=== PATIENT | male | born 1955 | race Caucasian/White ===

== ENCOUNTER 2018-02-08 08:18 | Outpatient (REF) | payer OTHER, SELFPAY ==
[2018-02-08 13:30] LABS: HCT 42.7 % (40.0-50.0); HGB 14.1 g/dL (13.5-17.5); Mean Corpuscular Hemoglobin 30.7 pg (27.0-33.0); Mean Platelet Volume 10.6 fL (8.0-11.0); Platelet Count 219 x1000/uL (130-400); RBC 4.59 m/cumm (4.50-6.00); RBC Distribution Width 14.6 % (11.8-14.1)
[2018-02-08 14:08] LABS: BUN 12 mg/dL (7-18); CREATININE 1.02 mg/dL (0.70-1.30); Calcium 9.4 mg/dL (8.5-10.1); Chloride 98 mmol/L (98-107); Ferritin 107 ng/mL (8-388); Glucose 118 mg/dL (70-100); Potassium 3.8 mmol/L (3.5-5.1); Sodium 138 mmol/L (136-145)
[2018-02-08 14:28] LABS: Hemoglobin A1C 6.1 % (4.5-6.2)
== END 2018-02-08 08:38 ==
LOC: NCHCN 08:18
PROVIDERS: PCP Family Medicine; Visit Provider Family Medicine
DX: E11.9 Type 2 diabetes mellitus without complications (principal); D50.9 Iron deficiency anemia, unspecified
CPT/HCPCS: 80048; 85027; 82728; 83036

== ENCOUNTER 2018-08-08 08:03 | Outpatient (REF) | payer OTHER, SELFPAY ==
[2018-08-08 13:06] LABS: HCT 42.7 % (40.0-50.0); Mean Corp. HGB Concentration 32.8 g/dL (32.0-36.0); Mean Corpuscular Hemoglobin 30.7 pg (27.0-33.0); Mean Corpuscular Volume 93.6 fL (80-95); Mean Platelet Volume 10.9 fL (8.0-11.0); Platelet Count 221 x1000/uL (130-400); RBC 4.56 m/cumm (4.50-6.00); RBC Distribution Width 14.2 % (11.8-14.1); White Blood Cell Count 5.84 k/cumm (4.4-10.8)
[2018-08-08 13:49] LABS: ALT 100 U/L (12-78); AST 71 U/L (15-37); Alkaline Phosphatase 95 U/L (46-116); Anion Gap 9.8 mmol/L (3-11); BUN 12 mg/dL (7-18); Bilirubin, Total 0.5 mg/dL (0.2-1.0); CO2 31.2 mmol/L (21.0-32.0); CREATININE 1.02 mg/dL (0.70-1.30); Calcium 9.6 mg/dL (8.5-10.1); Calculated LDL 59; Chloride 97 mmol/L (98-107); Cholesterol 145 mg/dL (50-200); Ferritin 79 ng/mL (8-388); Glucose 108 mg/dL (70-100); HDL Cholesterol 40 mg/dL (40-60); Potassium 3.9 mmol/L (3.5-5.1); Sodium 138 mmol/L (136-145); Total Protein 7.4 g/dL (6.4-8.2); Triglyceride 231 mg/dL (30-150)
[2018-08-08 13:54] LABS: Hemoglobin A1C 6.1 % (4.5-6.2)
== END 2018-08-08 08:23 ==
LOC: NCHCN 08:03
PROVIDERS: PCP Family Medicine; Visit Provider Family Medicine
DX: E11.9 Type 2 diabetes mellitus without complications (principal); D50.9 Iron deficiency anemia, unspecified; I10 Essential (primary) hypertension; E78.5 Hyperlipidemia, unspecified
CPT/HCPCS: 80053; 80061; 83721; 85027; 82728; 83036

== ENCOUNTER 2018-08-15 10:30 | Outpatient (CLI) | payer OTHER, SELFPAY ==
--- NOTE | 2018-08-15 12:31 | MERGE_ITS ---
*[facility]* *[facility]* [address] [place] [address] Date of study: 08/15/2018 Transthoracic Echocardiography M-mode, complete 2D, complete spectral Doppler, and color Doppler *STUDY CONCLUSIONS* Summary: 1. Left ventricle: The cavity size was normal. Wall thickness was normal. Systolic function was normal. The estimated ejection fraction was 55-60%. Wall motion was normal; there were no regional wall motion abnormalities. 2. Right ventricle: The cavity size was normal. Wall thickness was normal. Systolic function was normal. *PATIENT PRESENTATION* Height: 175.3cm ((69in) ) S/D Pressure: 133 / 94 Weight: 112.5kg ((247.5lb) ) BSA: 2.38m^2 Test start time: 12:30 PM. Test stop time: 01:10 PM. CONSULTING Yady Young PERFORMING Unknown PERFORMING [facility] ORDERING Joanie Manzo Aprn REFERRING Joanie Manzo Aprn STORM CHASER Rosalina Vaca *PROCEDURE DATA* Procedure information: This study was interpreted by [facility]. Pertinent images and digital data are archived for permanent storage and are available for subsequent review. Comparison was made to the study of 01/13/2016. Study status: Routine. Transthoracic echocardiography. M-mode, complete 2D, complete spectral Doppler, and color Doppler. A Transthoracic Echocardiogram was performed. Scanning was performed from the parasternal, apical, subcostal, and suprasternal notch acoustic windows. Images were obtained using an [employer] SC 2000 cardiac ultrasound machine. Image quality was adequate. Study completion: The patient tolerated the procedure well. There were no complications. History: PMH: Activity intolerance, ? A fib. *CARDIAC ANATOMY* Left ventricle: The cavity size was normal. Wall thickness was normal. Systolic function was normal. The estimated ejection fraction was 55-60%. Wall motion was normal; there were no regional wall motion abnormalities. Diastolic parameters were normal. Aortic valve: Trileaflet; normal thickness leaflets. Mobility was not restricted. Doppler: Transvalvular velocity was within the normal range. There was no stenosis. There was no significant regurgitation. VTI ratio of LVOT to aortic valve: 0.98. Valve area (VTI): 3.2cm^2. Indexed valve area (VTI): 1.3cm^2/m^2. Peak velocity ratio of LVOT to aortic valve: 0.87. Valve area (Vmax): 2.8cm^2. Indexed valve area (Vmax): 1.2cm^2/m^2. Mean velocity ratio of LVOT to aortic valve: 0.87. Valve area (Vmean): 2.8cm^2. Indexed valve area (Vmean): 1.2cm^2/m^2. Mean gradient (S): 3.8mm Hg. Peak gradient (S): 9.1mm Hg. Aorta: Aortic root: The aortic root was normal in size. Ascending aorta: The ascending aorta was normal in size. Mitral valve: Structurally normal valve. Mobility was not restricted. Doppler: Transvalvular velocity was within the normal range. There was no evidence for stenosis. There was no significant regurgitation. Valve area by pressure half-time: 3.7cm^2. Indexed valve area by pressure half-time: 1.6cm^2/m^2. Left atrium: The atrium was normal in size. Right ventricle: The cavity size was normal. Wall thickness was normal. Systolic function was normal. Pulmonic valve: Structurally normal valve. Doppler: Transvalvular velocity was within the normal range. There was no evidence for stenosis. There was no significant regurgitation. Peak gradient (S): 4.3mm Hg. Tricuspid valve: Structurally normal valve. Doppler: Transvalvular velocity was within the normal range. There was no evidence for stenosis. There was mild regurgitation. Pulmonary artery: Pulmonary systolic pressure was within the normal range, in the range of 30mm Hg to 35mm Hg. Right atrium: The atrium was normal in size. Pericardium: There was no pericardial effusion. Systemic veins: Inferior vena cava: The vessel was normal in size. Measurements Left ventricle Value Reference LV ID, ED, PLAX 4.8 cm 3.5 - 6.0 LV ID, ES, PLAX 3.0 cm 2.1 - 4.0 LV PW thickness, ED, PLAX 1.1 cm LV end-diastolic volume, 1-p A2C 111 ml LV ejection fraction, 1-p A2C 48 % LV end-diastolic volume, 1-p A4C 72 ml LV ejection fraction, 1-p A4C 45 % LV e', lateral 0.088 m/sec LV E/e', lateral 7 LV e', medial 0.093 m/sec LV E/e', medial 7 LV e', average 0.09 m/sec LV E/e', average 7 Ventricular septum Value Reference IVS thickness, ED, PLAX 1.1 cm LVOT Value Reference LVOT ID, A-P 2.0 cm LVOT area 3.2 cm^2 LVOT peak velocity, S 1.31 m/sec LVOT mean velocity, S 0.75 m/sec LVOT VTI, S 22.5 cm LVOT peak gradient, S 6.9 mm Hg LVOT mean gradient, S 2.8 mm Hg Stroke volume (SV), LVOT DP 73 ml Stroke index (SV/bsa), LVOT DP 30 ml/m^2 Aortic valve Value Reference Aortic valve peak velocity, S 1.5 m/sec Aortic valve mean velocity, S 0.87 m/sec Aortic valve VTI, S 23.0 cm Aortic mean gradient, S 3.8 mm Hg Aortic peak gradient, S 9.1 mm Hg VTI ratio, LVOT/AV 0.98 Aortic valve area, VTI 3.2 cm^2 Velocity ratio, peak, LVOT/AV 0.87 Aortic valve area, peak velocity 2.8 cm^2 Velocity ratio, mean, LVOT/AV 0.87 Aortic valve area, mean velocity 2.8 cm^2 Aortic valve area/bsa, mean velocity 1.2 cm^2/m^2 Aorta Value Reference Aortic root ID, ED 3.8 cm Ascending aorta ID, A-P, S 3.3 cm Left atrium Value Reference LA ID, A-P, ES 2.9 cm LA ID/bsa, A-P 1.2 cm/m^2 <=2.2 LA area, ES, A4C 22.5 cm^2 8.8 - 23.4 LA area, ES, A2C 24 cm^2 LA volume/bsa, S 33 ml/m^2 LA volume, ES, 2-p 72 ml LA volume/bsa, ES, 2-p 30 ml/m^2 LA/aortic root ratio 0.76 Mitral valve Value Reference Mitral E-wave peak velocity 0.64 m/sec Mitral A-wave peak velocity 0.75 m/sec Mitral deceleration time 203 ms 150 - 230 Mitral pressure half-time 59 ms Mitral E/A ratio, peak 0.85 Mitral valve area, PHT, DP 3.7 cm^2 Tricuspid valve Value Reference Tricuspid regurg peak velocity 2.5 m/sec Tricuspid peak RV-RA gradient 24.9 mm Hg Pulmonic valve Value Reference Pulmonic peak gradient, S 4.3 mm Hg Legend: (L) and (H) azeem values outside specified reference range. I have personally reviewed the images and have reviewed and edited the reported findings. Electronically signed by Latrell Womack 08/15/2018 13:53
== END 2018-08-15 10:50 ==
PROVIDERS: PCP Family Medicine; Visit Provider Nurse Practitioner Primary Care
DX: I48.91 Unspecified atrial fibrillation (principal); R68.89 Other general symptoms and signs
CPT/HCPCS: 93306

== ENCOUNTER 2018-08-15 15:50 | Outpatient (REF) | payer OTHER, SELFPAY ==
[2018-08-15 19:38] LABS: COMMENT (LAB VIEW ONLY) 205.57 mg/dL; Microalb ug/mg Crea 5.5 ug/mg Cr
== END 2018-08-15 16:10 ==
LOC: NCHCN 15:50
PROVIDERS: PCP Family Medicine; Visit Provider Family Medicine
DX: E11.9 Type 2 diabetes mellitus without complications (principal)
CPT/HCPCS: 82043; 82570

== ENCOUNTER 2018-11-13 07:35 | Outpatient (REF) | payer OTHER, SELFPAY ==
[2018-11-13 12:26] LABS: ALT 71 U/L (16-63); AST 47 U/L (15-37); Albumin 3.8 g/dL (3.4-5.0); Alkaline Phosphatase 96 U/L (46-116); Bilirubin, Direct 0.18 mg/dL (0.00-0.20); Bilirubin, Total 0.7 mg/dL (0.2-1.0)
[2018-11-13 12:53] LABS: HCT 34.7 % (40.0-50.0); HGB 11.2 g/dL (13.5-17.5); Mean Corp. HGB Concentration 32.3 g/dL (32.0-36.0); Mean Corpuscular Volume 86.8 fL (80-95); Mean Platelet Volume 10.6 fL (8.0-11.0); Platelet Count 292 x1000/uL (130-400); White Blood Cell Count 6.89 k/cumm (4.4-10.8)
== END 2018-11-13 07:55 ==
LOC: NCHCN 07:35
PROVIDERS: PCP Family Medicine; Visit Provider Family Medicine
DX: F10.99 Alcohol use, unspecified with unspecified alcohol-induced disorder (principal); K76.0 Fatty (change of) liver, not elsewhere classified
CPT/HCPCS: 80076; 85027

== ENCOUNTER 2019-03-04 01:22 | Outpatient (CLI) | payer OTHER, MEDICARE, SELFPAY ==
--- NOTE | 2019-03-04 07:01 | DI.US_ITS ---
EXAM: US SCROTUM CLINICAL HISTORY: LT TESTIS VARICOCELE, I86.1 TECHNIQUE: Ultrasound performed using standard protocol. COMPARISON: SCROTAL ULTRASOUND from 10/06/2011 FINDINGS: The testicles are normal in size and echogenicity. There is no evidence of mass or torsion. There is a question of a 3 millimeter spermatocele in the head of the right epididymis. There are mildly dil ated veins up to 3 millimeters in diameter consistent with a mild left varicocele. There is no signi ficant hydrocele. IMPRESSION: Mild left varicocele, not grossly changed from 2012.
== END 2019-03-04 01:42 ==
PROVIDERS: PCP Family Medicine; Visit Provider Family Medicine
DX: I86.1 Scrotal varices (principal); N43.41 Spermatocele of epididymis, single
CPT/HCPCS: 76870

== ENCOUNTER 2019-04-15 08:59 | Outpatient (CLI) | payer OTHER, MEDICARE, SELFPAY | END 2019-04-15 09:19 | PROVIDERS: PCP Family Medicine; Visit Provider Internal Medicine Cardiovascular Disease | DX: I48.91 Unspecified atrial fibrillation (principal); I10 Essential (primary) hypertension; Z95.0 Presence of cardiac pacemaker | CPT/HCPCS: 93005; 93010 ==

== ENCOUNTER 2019-09-10 01:13 | Outpatient (CLI) | payer OTHER, MEDICARE, SELFPAY ==
[2019-09-10 10:38] LABS: COMMENT (LAB VIEW ONLY) 240.65 mg/dL; Microalb ug/mg Crea 5.4 ug/mg Cr
== END 2019-09-10 01:33 ==
PROVIDERS: PCP Family Medicine; Visit Provider Family Medicine
DX: R73.03 Prediabetes (principal)
CPT/HCPCS: 82043; 82570

== ENCOUNTER 2020-02-11 16:29 | Outpatient (REF) | payer OTHER, MEDICARE, SELFPAY ==
[2020-02-11 13:50] LABS: HCT 42.9 % (40.0-50.0); HGB 14.1 g/dL (13.5-17.5); MCHC 32.9 % (32.0-36.0); MCV 91.3 fL (80-95); MPV 10.9 fL (8.0-11.0); Platelet Count 234 10^3/uL (130-400); RDW 13.3 % (11.8-14.1); RDW-SD 44.5 fL; WBC 8.31 10^3/uL (4.4-10.8)
[2020-02-11 14:02] LABS: ALT 98 U/L (16-63); AST 68 U/L (15-37); Alkaline Phosphatase 107 U/L (46-116); Anion Gap 10.6 mmol/L (3-11); BUN 17 mg/dL (7-18); Bilirubin, Total 0.4 mg/dL (0.2-1.0); CO2 30.4 mmol/L (21.0-32.0); CREATININE 1.13 mg/dL (0.70-1.30); Calcium 9.8 mg/dL (8.5-10.1); Chloride 100 mmol/L (98-107); Glucose 141 mg/dL (74-106); Potassium 3.9 mmol/L (3.5-5.1); Sodium 141 mmol/L (136-145); Total Protein 7.5 g/dL (6.4-8.2)
[2020-02-11 14:12] LABS: Hemoglobin A1C 6.4 % (<5.7)
== END 2020-02-11 16:49 ==
LOC: LBN 16:29
PROVIDERS: PCP Family Medicine; Visit Provider Family Medicine
DX: R73.03 Prediabetes (principal); E78.5 Hyperlipidemia, unspecified; I10 Essential (primary) hypertension; K76.0 Fatty (change of) liver, not elsewhere classified
CPT/HCPCS: 80053; 85027; 83036

== ENCOUNTER 2020-02-19 17:57 | Outpatient (REF) | payer OTHER, MEDICARE, SELFPAY ==
[2020-02-22 14:50] LABS: HSV 1 DNA Result Negative (Negative); HSV 2 DNA Result Positive (Negative); Varicella Zoster DNA Result Negative (Negative)
== END 2020-02-19 18:17 ==
LOC: LBN 17:57
PROVIDERS: PCP Family Medicine; Visit Provider Family Medicine
DX: R21 Rash and other nonspecific skin eruption (principal)
CPT/HCPCS: 87529; 87798

== ENCOUNTER 2020-02-23 01:48 | Outpatient (CLI) | payer OTHER, MEDICARE, SELFPAY ==
--- NOTE | 2020-02-23 08:21 | DI.RAD_ITS ---
EXAM: XR HIP RT COMPLETE AP PELVIS CLINICAL HISTORY: RT HIP PAIN, M25.551. TECHNIQUE: 2D digital imaging was performed. COMPARISON: No exams were available for comparison FINDINGS: There is no evidence of pelvic or hip fracture. There is a 5 x 1.5 millimeters sliver of calcificati on immediately adjacent to the greater trochanter consistent with calcific tendonitis/bursitis. Ther e are mild degenerative changes in the hip joint noted. No ominous osseous lesions. IMPRESSION: 5 x 1.5 millimeter calcification just lateral to the right hip greater trochanter. This is probably related to calcific tendinitis or bursitis at this level. DATA REPOSITORY: RADIATION DOSE DELIVERED:
== END 2020-02-23 02:08 ==
PROVIDERS: PCP Family Medicine; Visit Provider Family Medicine
DX: M25.551 Pain in right hip (principal); M16.11 Unilateral primary osteoarthritis, right hip; M25.851 Other specified joint disorders, right hip
CPT/HCPCS: 73502

== ENCOUNTER 2020-08-09 09:12 | Outpatient (REF) | payer OTHER, MEDICARE, SELFPAY ==
[2020-08-09 14:43] LABS: ALT 89 U/L (16-63); AST 54 U/L (15-37); Albumin 3.8 g/dL (3.4-5.0); Alkaline Phosphatase 93 U/L (46-116); Anion Gap 11.1 mmol/L (3-11); BUN 18 mg/dL (7-18); Bilirubin, Total 0.6 mg/dL (0.2-1.0); CO2 28.9 mmol/L (21.0-32.0); CREATININE 1.1 mg/dL (0.70-1.30); Calcium 9.5 mg/dL (8.5-10.1); Chloride 103 mmol/L (98-107); Glucose 141 mg/dL (74-106); Sodium 143 mmol/L (136-145); Total Protein 7.2 g/dL (6.4-8.2)
[2020-08-09 14:49] LABS: Hemoglobin A1C 6.5 % (<5.7)
== END 2020-08-09 09:13 | disposition home or self-care (01) ==
LOC: NCHCN 09:12
PROVIDERS: PCP Family Medicine; Visit Provider Family Medicine
DX: R73.03 Prediabetes (principal); I10 Essential (primary) hypertension; K76.0 Fatty (change of) liver, not elsewhere classified
CPT/HCPCS: 80053; 83036

== ENCOUNTER 2020-08-16 10:32 | Outpatient (REF) | payer OTHER, MEDICARE, SELFPAY ==
[2020-08-16 16:55] LABS: COMMENT (LAB VIEW ONLY) 291.75 mg/dL
[2020-08-16 16:59] LABS: Microalb ug/mg Crea 35.3 ug/mg Cr
== END 2020-08-16 10:33 | disposition home or self-care (01) ==
LOC: NCHCN 10:32
PROVIDERS: PCP Family Medicine; Visit Provider Family Medicine
DX: R73.03 Prediabetes (principal); I10 Essential (primary) hypertension
CPT/HCPCS: 82043; 82570

== ENCOUNTER → 2021-05-11 09:39 | Outpatient (BNVA) | payer MEDICARE, SELFPAY | PROVIDERS: PCP Family Medicine; Visit Provider Physician Assistant | DX: I44.30 Unspecified atrioventricular block (principal); Z95.0 Presence of cardiac pacemaker | CPT/HCPCS: 93280 ==

== ENCOUNTER 2021-06-14 16:05 | Outpatient (REF) | payer MEDICARE, BC, SELFPAY ==
[2021-06-14 21:57] LABS: HCT 41.8 % (40.0-50.0); HGB 13.2 g/dL (13.5-17.5); MCH 29.9 pg (27.0-33.0); MCHC 31.6 % (32.0-36.0); MCV 94.8 fL (80-95); MPV 10.7 fL (8.0-11.0); Platelet Count 214 10^3/uL (130-400); RBC 4.41 10^6/uL (4.36-5.78); RDW 13.8 % (11.8-14.1); RDW-SD 47.8 fL; WBC 6.82 10^3/uL (4.4-10.8)
[2021-06-14 22:46] LABS: Hemoglobin A1C 6.5 % (<5.7)
[2021-06-14 22:59] LABS: ALT 64 U/L (16-63); AST 47 U/L (15-37); Alkaline Phosphatase 88 U/L (46-116); BUN 17 mg/dL (7-18); Bilirubin, Total 0.7 mg/dL (0.2-1.0); CREATININE 1.2 mg/dL (0.70-1.30); Calcium 9.5 mg/dL (8.5-10.1); Chloride 101 mmol/L (98-107); Ferritin 74 ng/mL (26-388); Glucose 139 mg/dL (74-106); Potassium 3.8 mmol/L (3.5-5.1); Sodium 142 mmol/L (136-145); Total Protein 7.3 g/dL (6.4-8.2)
== END 2021-06-14 16:06 | disposition home or self-care (01) ==
LOC: NCHCN 16:05
PROVIDERS: PCP Family Medicine; Visit Provider Family Medicine
DX: R73.03 Prediabetes (principal); I10 Essential (primary) hypertension; Z86.2 Personal history of diseases of the blood and blood-forming organs and certain disorders involving the immune mechanism
CPT/HCPCS: 80053; 85027; 82728; 83036

== ENCOUNTER → 2021-08-30 01:29 | Outpatient (CLI) | payer BC, MEDICARE, SELFPAY ==
--- NOTE | 2021-08-30 | DI.US_ITS ---
Exam(s) US ABDOMEN EXAM: US ABDOMEN CLINICAL HISTORY: SCREENING FOR HCC, CIRRHOSIS,K74.60,FATTY INFILTRATION LIVER,K76.0 TECHNIQUE: Ultrasound of complete upper abdomen performed using standard protocol. COMPARISON: US ABDOMEN LIMITED/FOLLOW UP US from 09/14/2016 US US SCROTUM from 03/04/2019 FINDINGS: There is no ascites evident. LIVER: Somewhat echogenic implying an element of steatosis. No obvious discrete focal hepatic lesion s identified. GALLBLADDER/BILIARY: Gallbladder surgically absent. The common hepatic duct isupper normal, measuring 6-7mm at the level of mariana hepatis. PANCREAS: Not well seen due to overlying bowel gas. SPLEEN: The spleen is not enlarged and there are no intrasplenic lesions evident. KIDNEYS:Kidneys exhibit normal size with no evidence of solid mass, calculus, nor hydronephrosis. No cortical cysts evident. ABDOMINAL AORTA: Not seen due to bowel gas IVC: Not well seen due to bowel gas IMPRESSION: 1. Gallbladder is now surgically absent. Common hepatic duct diameter is commensurate with post cho lecystectomy status. 2. Echogenic liver implying an element of steatosis. No obvious discrete focal hepatic lesions iden tified. 3. There is no ascites. DATA REPOSITORY:
== END ==
PROVIDERS: PCP Family Medicine; Visit Provider Family Medicine
DX: K74.60 Unspecified cirrhosis of liver (principal); K76.0 Fatty (change of) liver, not elsewhere classified; Z90.49 Acquired absence of other specified parts of digestive tract
CPT/HCPCS: 76700

== ENCOUNTER 2021-09-15 10:47 | Outpatient (REF) | payer BC, MEDICARE, SELFPAY ==
[2021-09-15 15:51] LABS: COMMENT (LAB VIEW ONLY) 175.87 mg/dL
[2021-09-15 16:17] LABS: Microalb ug/mg Crea 3.2 ug/mg Cr
== END 2021-09-15 10:48 | disposition home or self-care (01) ==
LOC: NCHCN 10:47
PROVIDERS: PCP Family Medicine; Visit Provider Family Medicine
DX: E11.9 Type 2 diabetes mellitus without complications (principal)
CPT/HCPCS: 82043; 82570

== ENCOUNTER 2022-06-14 10:33 | Outpatient (REF) | payer BC, MEDICARE, SELFPAY ==
[2022-06-14 16:00] LABS: HCT 44.4 % (40.0-50.0); HGB 14.3 g/dL (13.5-17.5); MCH 27.8 pg (27.0-33.0); MCHC 32.2 % (32.0-36.0); MCV 86 fL (80-95); MPV 10.4 fL (8.0-11.0); Platelet Count 252 10^3/uL (130-400); RBC 5.15 10^6/uL (4.36-5.78); RDW 13.6 % (11.8-14.1); RDW-SD 42.4 fL; WBC 11.37 10^3/uL (4.4-10.8)
[2022-06-14 16:15] LABS: Hemoglobin A1C 6.7 % (<5.7)
[2022-06-14 16:26] LABS: ALT 42 U/L (16-63); AST 20 U/L (15-37); Albumin 3.8 g/dL (3.4-5.0); Alkaline Phosphatase 88 U/L (46-116); Anion Gap 9.3 mmol/L (3-11); BUN 16 mg/dL (7-18); Bilirubin, Total 0.4 mg/dL (0.2-1.0); CO2 27.7 mmol/L (21.0-32.0); CREATININE 1.3 mg/dL (0.70-1.30); Calcium 9.7 mg/dL (8.5-10.1); Chloride 105 mmol/L (98-107); Estimated GFR 59.84 (mL/min/1.73m2); Glucose 151 mg/dL (74-106); Potassium 3.8 mmol/L (3.5-5.1); Sodium 142 mmol/L (136-145); Total Protein 7.9 g/dL (6.4-8.2)
== END 2022-06-14 10:34 | disposition home or self-care (01) ==
LOC: NCHCN 10:33
PROVIDERS: PCP Family Medicine; Visit Provider Family Medicine
DX: E11.9 Type 2 diabetes mellitus without complications (principal); I10 Essential (primary) hypertension
CPT/HCPCS: 80053; 85027; 83036

== ENCOUNTER 2022-06-16 07:04 | Day surgery (SDC) | payer BC, MEDICARE, SELFPAY ==
--- NOTE | 2022-06-15 12:05 | PDOC.DSDIS_ITS ---
Date of service: 06/16/22 Time of Service: 09:17 Discharge Plan Disposition Patient Disposition: Home Discharge Details Reason For Visit: Colonoscopy/colon scope Attending Provider: Roxanne Harvey Primary Care Provider: Yady oYung Home Meds and New Rx's Prescriptions: Discontinued bisacodyl [Dulcolax (bisacodyl)] 5 mg tablet,delayed release (DR/EC) 5 mg PO ONCE Qty: 4 0RF Rx Instructions: Colonoscopy Bowel Prep- Per Instructions polyethylene glycol 3350 17 gram/dose powder 238 g PO ONCE Qty: 238 0RF Rx Instructions: Colonoscopy Bowel Prep- Per Instructions No Action multivitamin Tablet 1 tab PO DAILY ferrous sulfate 325 mg (65 mg iron) tablet 325 mg PO BID ascorbate calcium (vitamin C) 500 mg tablet 500 mg PO BID omega-3 fatty acids 1,250 mg capsule 1,250 mg PO DAILY calcipotriene [Dovonex] 0.005 % cream 1 applic TP DAILY betamethasone dipropionate 0.05 % ointment 1 applic TP DAILY selenium sulfide [SelRx] 2.3 % shampoo 1 applic TP DAILY Trulicity 0.75 mg/0.5 mL pen injector 0.5 mg subcut QWEEK atorvastatin 40 MG tablet 40 mg PO DAILY Eliquis 5 MG tablet 5 mg PO BID Qty: 60 11RF bisoprolol fumarate 10 mg tablet 10 mg PO DAILY Qty: 90 3RF losartan 25 mg tablet 50 mg PO DAILY omeprazole magnesium [Prilosec OTC] 20 MG tablet,delayed release (DR/EC) 40 mg PO DAILY Qty: 120 0RF Rx Instructions: double your dose for now acetaminophen [Tylenol] 325 MG tablet 650 mg PO Q4H PRN PRN0RF metformin 500 mg tablet extended release 24 hr 500 mg PO QPM hydrochlorothiazide 25 MG tablet 25 mg PO DAILY Discharge Instructions Additional Instructions: DSU Colonoscopy Post- Op Instructions Instructions for Everyone who is given Anesthesia: For your safety, please do the following for the next twenty-four (24) hours: *Do Not operate a motor vehicle (car, truck, motorcycle, etc.) *Do Not drink alcoholic beverages or use any recreational drugs for the first 24 hours or while taking pain medications. The medications in your body may have a reaction that can be dangerous. *Do Not make any important decisions or sign any important papers. Findings: Diverticula of the sigmoid colon. Follow up: repeat in 10 yrs time -Recommend F/u urology for nocturia 1. No lifting over 20 pounds or strenuous activity for the first 24 hours after your procedure. After 24 hours there are no restrictions on your activity but you may feel fatigued for a few days. 2. After you arrive home you may have a light meal and return to your normal diet as you can tolerate it without feeling sick to your stomach. 3. You may have a bloated, gaseous feeling in your belly (abdomen) after a colonoscopy. Passing gas and belching will help. Walking or lying down on your left side with your knees flexed may relieve the discomfort. Call the office at [phone] (Office) or [phone] (Hospital) right away if you notice any of the following: a.Vomiting of blood or ?coffee ground stools?. b.Rectal bleeding 1Tbsp, blood clots or continuous bleeding. c.Severe belly (abdominal) pain. d.A hard distended belly (abdomen) and an inability to pass gas. 4. Please don?t expect to have a normal BM (bowel movement) for 2-3 days after your procedure. 5. If there are questions regarding the findings of your procedure, please contact your doctor 6. If you are unable to contact your doctor with a problem, contact the hospital at [phone]. 7. Continue all your regular medications unless directed otherwise. I understand the above instructions and have no questions. Signature of Patient or Adult Escort Name of Responsible Adult Escort Signature of Nurse Date/Time Activity:: See above Diet:: See above Discharge Orders Discharge Orders: Discharge Order (Routine); Ordered 06/16/22 Ordered By: Roxanne Harvey
--- NOTE | 2022-06-15 16:41 | W.ANESPRE ---
General Info Date of Service Date Performed: 06/16/22 Height: 5 ft 9 in Weight: 120.202 kg Body Mass Index (BMI): 39.1 Surgical Procedure: Operation Date: 06/16/22 08:20 Proposed Procedure Side Surgeon mitchell Harvey, Meds Allergies and Home Medications Allergies Allergy/AdvReac Type Severity Reaction Status Date / Time No Known Allergies Allergy Verified 06/16/22 07:27 Home Medication Medication Instructions Recorded omeprazole magnesium 20 mg 40 mg PO DAILY ##120 12/31/15 tablet,delayed release (Prilosec OTC) atorvastatin 40 mg tablet 40 mg PO DAILY 05/11/16 acetaminophen 325 mg tablet 650 mg PO Q4H PRN PRN 09/16/16 (Tylenol) hydrochlorothiazide 25 mg tablet 25 mg PO DAILY 12/20/16 apixaban 5 mg tablet (Eliquis) 5 mg PO BID #60 tab-caps 05/29/17 ascorbate calcium (vitamin C) 500 500 mg PO BID 04/08/19 mg tablet betamethasone dipropionate 0.05 % 1 applic topical DAILY 04/08/19 topical ointment calcipotriene 0.005 % topical 1 applic topical DAILY 04/08/19 cream (Dovonex) ferrous sulfate 325 mg (65 mg 325 mg PO BID 04/08/19 iron) tablet metformin 500 mg tablet,extended 500 mg PO QPM 04/08/19 release 24 hr multivitamin 1 tab PO DAILY 04/08/19 omega-3 fatty acids 1,250 mg 1,250 mg PO DAILY 04/08/19 capsule selenium sulfide 2.3 % shampoo 1 applic topical DAILY 04/08/19 (SelRx) bisoprolol fumarate 10 mg tablet 10 mg PO DAILY #90 tabs 08/04/21 dulaglutide 0.75 mg/0.5 mL 0.5 mg subcut QWEEK 11/16/21 subcutaneous pen injector (Trulicity) losartan 25 mg tablet 50 mg PO DAILY 06/01/22 Current Visit Medications: Current Medications Generic Name Dose Route Start Last Admin Trade Name Freq PRN Reason Stop Dose Admin Hyoscyamine Sulfate 0.125 mg 06/16/22 12:04 Hyoscyamine 0.125 Mg Sl/Oral/Chew SL DIRECTED PRN Ringer's Solution 1,000 mls @ 80 mls/hr 06/16/22 06:00 IV 06/25/22 23:59 INFUSION [facility] IV Miscellaneous Supplies 1 each 06/16/22 06:00 Iv Access IV 06/25/22 23:59 DIRECTED RAMANDEEP Ondansetron HCl 4 mg 06/16/22 00:04 Ondansetron 4 Mg/2 Ml Vial IVP Q4H PRN PRN Nausea / Vomiting Sodium Chloride 0 ml 06/16/22 06:00 Normal Saline Flush 10 Ml Syr IV 06/25/22 23:59 PRN PRN Sodium Chloride 0 ml 06/16/22 06:00 Normal Saline 10 Ml Vial IJ 06/25/22 23:59 DIRECTED PRN Sterile Water 0 ml 06/16/22 06:00 Water,Injection,Sterile 10 Ml Vial IJ 06/25/22 23:59 DIRECTED PRN PFSH Active Problems Active Problems: Problem Status Onset Code Acute calculous cholecystitis K80.00 Pacemaker 01/13/16 Tubular adenoma of colon 12/22/16 D12.6 Atrial fibrillation I48.91 HTN (hypertension) I10 Pacemaker Z95.0 Left varicocele I86.1 Erectile dysfunction N52.9 Heart block atrioventricular I44.30 Medical History Medical History Chronic anal fissure CKD (chronic kidney disease) Depression Diabetes mellitus DVT (deep venous thrombosis) Fatty infiltration of liver Gastritis HLD (hyperlipidemia) Psoriasis Surgical History Surgical History AAA Appendectomy Cholecystectomy (09/14/16) Colonoscopy - MAC (05/16/16) History of embolectomy History of fasciotomy 4 compartment Per [facility] [place]: 02/16/14 open repair of ruptured AAA with tube gradt, embolectomy frmo groid, embolectomy from below knee incusion, 4 compartment fasciotomy Repair of umbilical hernia S/P cholecystectomy Tobacco Smoking/Tobacco Use Status: Current every day Tobacco Type: cigarettes Smoking cigarettes per day: 10 Alcohol Alcohol Intake: former Substance Use Substance use: Never Substance use type: does not use Vital Signs and Lab Results Vital Signs Most Recent Vital Signs in EMR: Temp Pulse Resp BP Pulse Ox 36.4 C L 87 18 118/82 95 06/16/22 07:13 06/16/22 07:13 06/16/22 07:13 06/16/22 07:13 06/16/22 07:13 Lab Results Blood Type / Crossmatch: No Data to Display Complete Blood Count: White Blood Count 11.37 10^3/uL (4.4-10.8) H 06/14/22 07:50 Red Blood Count 5.15 10^6/uL (4.36-5.78) 06/14/22 07:50 Hemoglobin 14.3 g/dL (13.5-17.5) 06/14/22 07:50 Hematocrit 44.4 % (40.0-50.0) 06/14/22 07:50 Platelet Count 252 10^3/uL (130-400) 06/14/22 07:50 Complete Metabolic Panel: Sodium 142 mmol/L (136-145) 06/14/22 07:50 Potassium 3.8 mmol/L (3.5-5.1) 06/14/22 07:50 Chloride 105 mmol/L (98-107) 06/14/22 07:50 Carbon Dioxide 27.7 mmol/L (21.0-32.0) 06/14/22 07:50 BUN 16 mg/dL (7-18) 06/14/22 07:50 Creatinine 1.3 mg/dL (0.70-1.30) 06/14/22 07:50 Est GFR (CKD-EPI 2020) 59.84 (mL/min/1.73m2) 06/14/22 07:50 Calcium 9.7 mg/dL (8.5-10.1) 06/14/22 07:50 Albumin 3.8 g/dL (3.4-5.0) 06/14/22 07:50 Glucose 151 mg/dL (74-106) H 06/14/22 07:50 Hemoglobin A1c 6.7 % (<5.7) H 06/14/22 07:50 Liver Function Panel: Alanine Aminotransferase (ALT/SGPT) 42 U/L (16-63) 06/14/22 07:50 Aspartate Amino Transf (AST/SGOT) 20 U/L (15-37) 06/14/22 07:50 Coagulation Panel: No Data to Display Cardiac Panel: No Data to Display Arterial Blood Gas: No Data to Display Venous Blood Gas: No Data to Display Pancreas Panel: No Data to Display Thyroid Panel: No Data to Display Infectious Disease: No Data to Display Blood Cultures: No Data to Display Toxicology Panel: No Data to Display Imaging and Studies Imaging and Studies Study information below may be from another EMR and interpreted by another provider. Please see original notes in EMR for more complete details. Stress Test Summary: 02/10: no defects noted, LVEF 58%. Echocardiogram Summary: 2019: LVEF 55-60%, normal rvfxn. Anesthesia Assessment and Plan Anesthesia History Personal History: No History of Anesthesia Complications Family History: No Family History of Anesthesia Complications Exercise Tolerance Exercise Tolerance: Metabolic Equivalents>4 Cardiac & Pulmonary Exam Cardiac Exam: Normal S1/S2 Heart Sounds Pulmonary Exam: Clear Bilateral Breath Sounds Implantable Cardiac Device Does patient have a Pacemaker or an ICD?: Yes Device Marketing Effectiveness Manager:: Tarenaa Reason for Placement:: AV block, A-fib Date of Last Device Interrogation:: 11/17/21 Airway Exam Known Difficult Airway: No Mallampati Class: 3 Mouth Opening: Normal (> 3cm) Thyromental Distance: Greater than 3 cm Neck Range of Motion: Full ROM Neck Circumference: Thick Teeth Condition: Normal Dentition ASA Classification ASA Score: ASA 3 Emergency Case?: No NPO Status NPO Status: NPO Clears >2 hours, Solids >8 hours Anesthesia Plan Resuscitation Status: Full Code Anesthesia Technique: General Anesthesia Airway Planned: Natural Airway Monitors Used: Standard Monitors Preoperative Comments:: 67 yo male for colo. Sig PMHx: pacer (medtronic advisa, DDDR, for high grade AVB), Afib (apixaban), CKD (GFR 59), DVT, DM (dulaglutide, metformin), AAA repair, smoker, GERD (omeprazole) Previous Anes: - colo, fent/midaz/prop, natural airway, no issues. - lap raj, mac 4 grade 1. - colo, prop, natural airway, no issues. did get glyco at the beginning.
[2022-06-16 07:13] VITALS: BP 118/82; PULSE 87; RESP 18; TEMP 36.4; O2SAT 95
[2022-06-16] MEDS: Lactated Ringers 1,000 ML 80 ML IV (07:40)
[2022-06-16 07:44] VITALS: BMI 39.1
--- NOTE | 2022-06-16 08:22 | W.COLOREPORT ---
Date of service: 06/16/22 Time of Service: 08:22 Colonoscopy Report Date of procedure: 06/16/22 Pre-op diagnosis general: History of adenomatous polyps / last scope was negative for polyps/I. hem's Post-op diagnosis procedure note: other (diverticula) Surgeon: Roxanne Harvey Anesthesia Type: General:No Airway Estimated blood loss (mL): 0 Pathology: none sent Complications: None Disposition: same day Prep: Miralax/Dulcolax Retraction Time: 14 mins Procedure Description: After informed consent was obtained the patient was taken to the procedure room and placed in a left decubitous position. Monitors were applied and a time out was done. The patients name, date of , procedure, allergies to medications and metal in their body was reviewed. The patient was then sedated. Once sedated and comfortable a rectal exam was done. External exam was normal. Internal exam revealed a normal sphincter tone and no palpable masses. The scope was then introduced and retrofelexed. Grade II internal hemorrhoids were identified. The scope was then advanced to the cecum w/out difficulty. The TI and appendiceal orifice were identified. The prep was BBPS 2 in all segments for total of 6. The mucosa is pink and healthy.. The scope was then slowly retracted over 14 minutes back into the rectum. He has moderate diverticular disease confined to the sigmoid colon with no signs of active bleeding or infection. No polyps were visualized today the scope was removed and the patient was woken up and taken back to Same day surgery in stable condition. The patient tolerated the procedure well and there were no immediate complications. Follow up: The patient should follow up in 10 years unless they develop changes in bowel habits or other new gastrointestinal complaints.
[2022-06-16 09:00] VITALS: PULSE 86; RESP 16; TEMP 36.4; O2SAT 95
--- NOTE | 2022-06-16 09:12 | W.ANESPOSTOP ---
Postoperative Evaluation Date, Time and Location Date Performed: 06/16/22 Time Performed: 09:13 Patient Location: Day Surgery Unit Vital Signs Most Recent Imported Vital Signs: Most Recent Vital Signs Temp Pulse Resp BP Pulse Ox 36.4 C L 86 16 118/82 95 06/16/22 09:00 06/16/22 09:00 06/16/22 09:00 06/16/22 07:13 06/16/22 09:00 Pain Score Most Recent Pain Score: Most Recent Pain Score Pain Level 0 06/16/22 09:00 Assessment Mental Status: Awake (Alert & Oriented to Patient Baseline) Airway and Respiratory Function: Patent airway with normal (patient baseline) respiratory exam Cardiovascular Function: Hemodynamically Stable Hydration Status: Adequately Hydrated Nausea & Vomiting: No Nausea or Vomiting Pain: Pt. Denies Any Pain Peripheral Nerve Block: Patient did not receive a nerve block
[2022-06-16 09:32] VITALS: BP 104/76; PULSE 77; RESP 18; TEMP 36.6; O2SAT 95
== END 2022-06-16 10:01 | disposition home or self-care (01) ==
PROVIDERS: PCP Family Medicine; Visit Provider Surgery
PROC: 0DJD8ZZ Inspection of Lower Intestinal Tract, Via Natural or Artificial Opening Endoscopic (ICD-10-PCS; CPT 45378; principal; 2022-06-16 08:15)
DX: Z12.11 Encounter for screening for malignant neoplasm of colon (principal); Z86.010 Personal history of colon polyps; I12.9 Hypertensive chronic kidney disease with stage 1 through stage 4 chronic kidney disease, or unspecified chronic kidney disease; N18.9 Chronic kidney disease, unspecified; K64.1 Second degree hemorrhoids; K57.30 Diverticulosis of large intestine without perforation or abscess without bleeding
CPT/HCPCS: 45378; G0105

== ENCOUNTER 2022-06-21 09:19 | Outpatient (REF) | payer BC, MEDICARE, SELFPAY ==
[2022-06-21 20:40] LABS: COMMENT (LAB VIEW ONLY) 212.95 mg/dL; Microalb ug/mg Crea 3.5 ug/mg Cr
== END 2022-06-21 09:20 | disposition home or self-care (01) ==
LOC: NCHCN 09:19
PROVIDERS: PCP Family Medicine; Visit Provider Family Medicine
DX: E11.9 Type 2 diabetes mellitus without complications (principal)
CPT/HCPCS: 82043; 82570

== ENCOUNTER 2022-11-15 08:06 | Outpatient (CLI) | payer BC, MEDICARE, SELFPAY ==
--- NOTE | 2022-11-15 08:00 | RT.EKG_ITS ---
APPROVED REPORT Exam: Resting ECG Reason for Exam: afib Patient Location: O HR:82 bpm ECG Measurements Heart Rate 82 AXIS ID 158 P -13 QRSd 112 QRS -44 QT 385 T -2 QTc 450 Conclusion Atrial-paced complexes...other complexes also detected Probable left atrial enlargement...P >50mS, <-0.10mV V1 Incomplete right bundle branch block...QRSd >112, terminal axis(90,270) Abnormal R-wave progression, late transition...QRS area<0 in V5/V6
== END 2022-11-15 08:07 | disposition home or self-care (01) ==
LOC: DI.CARD 08:07
PROVIDERS: PCP Family Medicine; Visit Provider Physician Assistant
DX: I48.91 Unspecified atrial fibrillation
CPT/HCPCS: 93010

== ENCOUNTER 2023-03-21 20:40 | Outpatient (REF) | payer MEDICARE, SELFPAY ==
[2023-03-21 19:21] LABS: ALT 88 U/L (16-63); AST 57 U/L (15-37); Albumin 3.8 g/dL (3.4-5.0); Alkaline Phosphatase 82 U/L (46-116); Anion Gap 9.2 mmol/L (3-11); BUN 16 mg/dL (7-18); Bilirubin, Total 0.7 mg/dL (0.2-1.0); CO2 31.8 mmol/L (21.0-32.0); CREATININE 1.2 mg/dL (0.70-1.30); Calcium 9.5 mg/dL (8.5-10.1); Calculated LDL 72 mg/dL (<100); Chloride 100 mmol/L (98-107); Cholesterol 167 mg/dL (<200); Estimated GFR 65.46 (mL/min/1.73m2); Glucose 128 mg/dL (74-106); HDL Cholesterol 55 mg/dL (40-60); Hemoglobin A1C 6.5 % (<5.7); Potassium 4.3 mmol/L (3.5-5.1); Sodium 141 mmol/L (136-145); Total Protein 7.5 g/dL (6.4-8.2); Triglyceride 203 mg/dL (<150)
== END 2023-03-21 20:41 | disposition home or self-care (01) ==
LOC: NCHCN 20:40
PROVIDERS: PCP Family Medicine; Visit Provider Family Medicine
DX: E11.9 Type 2 diabetes mellitus without complications (principal)
CPT/HCPCS: 80053; 80061; 83036

== ENCOUNTER 2023-09-26 16:24 | Outpatient (REF) | payer MEDICARE, SELFPAY ==
[2023-09-26 20:09] LABS: COMMENT (LAB VIEW ONLY) 274.05 mg/dL; Microalb ug/mg Crea 4.4 ug/mg Cr
== END 2023-09-26 16:25 | disposition home or self-care (01) ==
LOC: NCHCN 16:24
PROVIDERS: PCP Family Medicine; Visit Provider Family Medicine
DX: E11.9 Type 2 diabetes mellitus without complications (principal)
CPT/HCPCS: 82043; 82570

== ENCOUNTER → 2023-11-14 07:57 | Outpatient (BNVA) | payer MEDICARE, SELFPAY | PROVIDERS: PCP Family Medicine; Visit Provider Student in an Organized Health Care Education/Training Program | DX: Z95.810 Presence of automatic (implantable) cardiac defibrillator (principal); I48.0 Paroxysmal atrial fibrillation | CPT/HCPCS: 93280 ==

== ENCOUNTER 2023-11-14 14:05 | Outpatient (CLI) | payer MEDICARE, SELFPAY ==
[2023-11-16 11:18] LABS: TB Interpretation Negative (Negative)
== END 2023-11-14 14:06 | disposition home or self-care (01) ==
LOC: LBO 14:38
PROVIDERS: PCP Family Medicine; Visit Provider Dermatology
DX: L40.0 Psoriasis vulgaris (principal); Z79.899 Other long term (current) drug therapy
CPT/HCPCS: 36415; 86480

== ENCOUNTER 2024-03-24 15:15 | Outpatient (REF) | payer MEDICARE, SELFPAY ==
[2024-03-24 18:27] LABS: HCT 41.2 % (40.0-50.0); HGB 13.1 g/dL (13.5-17.5); MCH 28.5 pg (27.0-33.0); MCHC 31.8 % (32.0-36.0); MCV 90 fL (80-95); MPV 10.4 fL (8.0-11.0); Platelet Count 223 10^3/uL (130-400); RBC 4.59 10^6/uL (4.36-5.78); RDW 12.9 % (11.8-14.1); RDW-SD 42.3 fL; WBC 10.17 10^3/uL (4.4-10.8)
[2024-03-24 18:50] LABS: ALT 54 U/L (16-63); AST 33 U/L (15-37); Albumin 3.9 g/dL (3.4-5.0); Alkaline Phosphatase 78 U/L (46-116); Anion Gap 10.1 mmol/L (3-11); BUN 17 mg/dL (7-18); Bilirubin, Total 0.47 mg/dL (0.2-1.0); CO2 29.9 mmol/L (21.0-32.0); CREATININE 1.3 mg/dL (0.70-1.30); Calcium 9.8 mg/dL (8.5-10.1); Chloride 101 mmol/L (98-107); Glucose 142 mg/dL (74-106); Sodium 141 mmol/L (136-145); Total Protein 7.7 g/dL (6.4-8.2)
== END 2024-03-24 15:16 | disposition home or self-care (01) ==
LOC: NCHCN 15:15
PROVIDERS: PCP Family Medicine; Visit Provider Family Medicine
DX: K74.60 Unspecified cirrhosis of liver (principal); I10 Essential (primary) hypertension
CPT/HCPCS: 80053; 85027

== ENCOUNTER 2024-04-02 00:12 | Outpatient (CLI) | payer MEDICARE, SELFPAY ==
--- NOTE | 2024-04-02 | DI.RAD_ITS ---
Exam(s) XR HIP RT COMPLETE AP PELVIS EXAM: XR HIP RT COMPLETE AP PELVIS CLINICAL HISTORY: Pain in rt hip, M25.551. TECHNIQUE: 2D digital imaging was performed of the right hip. Two images were obtained. AP pelvis a nd lateral right hip views were obtained. COMPARISON: CR XR HIP RT COMPLETE AP PELVIS from 02/23/2020 FINDINGS: BONES: No acute fracture is present. No bony destructive lesion is seen. JOINTS: No dislocation present. There are stable mild degenerative changes seen in the hips. The sac roiliac joints and symphysis pubis are intact. SOFT TISSUE: Normal. IMPRESSION: Stable appearance of the right hip. No acute abnormality. DATA REPOSITORY: RADIATION DOSE DELIVERED:
--- NOTE | 2024-04-02 | DI.US_ITS ---
Exam(s) US ABDOMEN LIMITED EXAM: US ABDOMEN LIMITED CLINICAL HISTORY: Cirrhosis of liver, K74.60 TECHNIQUE: Ultrasound abdomen performed using standard protocol. COMPARISON: US US ABDOMEN from 08/30/2021 US US ABDOMEN from 07/17/2022 FINDINGS: LIVER: The liver is poorly visualized due to patient body habitus. Normal size at 17.5 cm. Moderate to severely increased at liver echogenicity and decreased through transmission. Coarsening of liver echotexture. Portions of the liver are not well seen. No gross focal liver lesions are seen. GALLBLADDER: Status post cholecystectomy. BILIARY SYSTEM: No intrahepatic or extrahepatic biliary ductal dilation . Right KIDNEY: Normal size. No evidence of renal calculi. No evidence of hydronephrosis. No renal mas s or cyst identified. PANCREAS: Normal where visualized. ASCITES: None seen. IMPRESSION: Coarsening of liver echotexture and increased echogenicity. No focal lesions are identified although portions of the liver were not well seen. DATA REPOSITORY:
== END 2024-04-02 00:32 ==
PROVIDERS: PCP Family Medicine; Visit Provider Family Medicine
DX: M25.551 Pain in right hip (principal); K74.60 Unspecified cirrhosis of liver
CPT/HCPCS: 73502; 76705

== ENCOUNTER 2024-11-12 07:44 | Outpatient (CLI) | payer MEDICARE, SELFPAY ==
--- NOTE | 2024-11-12 07:30 | RT.EKG_ITS ---
APPROVED REPORT Exam: Resting ECG Reason for Exam: afib Patient Location: O HR:80 bpm ECG Measurements Heart Rate 80 AXIS TX 170 P 11 QRSd 112 QRS -45 QT 380 T 2 QTc 439 Conclusion Sinus rhythm...normal P axis, V-rate 50- 99 Probable left atrial enlargement...P >50mS, <-0.10mV V1 Incomplete RBBB and LAFB...axis(240,-40), S>R II III aVF Abnormal R-wave progression, late transition...QRS area<0 in V5/V6
== END 2024-11-12 07:45 | disposition home or self-care (01) ==
LOC: DI.CARD 07:45
PROVIDERS: PCP Family Medicine; Visit Provider Student in an Organized Health Care Education/Training Program
DX: I48.0 Paroxysmal atrial fibrillation (principal); I44.30 Unspecified atrioventricular block; I51.7 Cardiomegaly
CPT/HCPCS: 93010

== ENCOUNTER → 2024-11-12 08:10 | Outpatient (BNVA) | payer MEDICARE, SELFPAY | PROVIDERS: PCP Family Medicine; Visit Provider Student in an Organized Health Care Education/Training Program | DX: I48.0 Paroxysmal atrial fibrillation (principal); I44.30 Unspecified atrioventricular block; Z45.018 Encounter for adjustment and management of other part of cardiac pacemaker | CPT/HCPCS: 93280 ==

== ENCOUNTER 2024-11-19 18:02 | Outpatient (REF) | payer MEDICARE, SELFPAY ==
[2024-11-19 21:43] LABS: COMMENT (LAB VIEW ONLY) 116.71 mg/dL; Microalb ug/mg Crea 4.6 ug/mg Cr
== END 2024-11-19 18:03 | disposition home or self-care (01) ==
LOC: NCHCN 18:02
PROVIDERS: PCP Family Medicine; Visit Provider Family Medicine
DX: E11.9 Type 2 diabetes mellitus without complications (principal)
CPT/HCPCS: 82043; 82570